=== PATIENT | female | born 2000 | race American Indian/Alaskan Native ===

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

== ENCOUNTER 2020-03-19 17:21 | Emergency (ER) | payer MEDICAID ==
[2020-03-19 17:27] VITALS: BP 114/59
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
== END 2020-03-19 19:00 | disposition home or self-care (01) ==
LOC: ED 17:21
DX: S60.511A Abrasion of right hand, initial encounter (principal); S00.511A Abrasion of lip, initial encounter; M25.512 Pain in left shoulder; Z98.890 Other specified postprocedural states; Z79.1 Long term (current) use of non-steroidal anti-inflammatories (NSAID); Z79.899 Other long term (current) drug therapy; V49.49XA Driver injured in collision with other motor vehicles in traffic accident, initial encounter; W22.10XA Striking against or struck by unspecified automobile airbag, initial encounter; Y93.89 Activity, other specified; Y92.410 Unspecified street and highway as the place of occurrence of the external cause; Y99.8 Other external cause status
CPT/HCPCS: 71046